=== PATIENT | female | born 1940 | race Caucasian/White ===

== ENCOUNTER → 2021-11-29 | Emergency (ER) | payer OTHER ==
[~2021-11-29] VITALS: Ht 157.5 cm; Wt 86.2 kg
[~2021-11-29] MED LIST: DUREZOL5 ML; ILEVRO3 ML; OCUFLOX5 ML
== END | disposition home or self-care (01) ==
LOC: ER 14:38
DX: R19.7 Diarrhea, unspecified (principal)

== ENCOUNTER 2023-07-19 14:11 | Outpatient (CLI) | payer OTHER | END 2023-07-19 14:17 | disposition home or self-care (01) | LOC: RAD 14:11 | PROVIDERS: ATTEND Physical Medicine & Rehabilitation | DX: M54.2 Cervicalgia (principal); M54.6 Pain in thoracic spine; M54.59 Other low back pain ==

== ENCOUNTER 2024-12-09 14:01 | Outpatient (CLI) | payer OTHER | END 2024-12-09 14:02 | disposition home or self-care (01) | LOC: NUCLEAR 14:01 | DX: M81.0 Age-related osteoporosis without current pathological fracture (principal) ==

== ENCOUNTER 2025-03-05 12:56 | Outpatient (CLI) | payer OTHER | END 2025-03-05 13:01 | disposition home or self-care (01) | LOC: RAD 12:56 | PROVIDERS: ATTEND Physical Medicine & Rehabilitation | DX: M54.2 Cervicalgia (principal) ==